=== PATIENT | male | born 1955 | race Caucasian/White ===

== ENCOUNTER 2021-08-19 11:13 | Observation (INO) ==
[2021-08-19 11:56] LABS: POC Blood Urea Nitrogen 20 mg/dL (6-20); POC CO2 29 mmol/L (22-30); POC Calcium, Ionized 1.17 mmEq/L (1.16-1.32); POC Chloride 101 mEq/L (96-108); POC Creatinine 0.8 mg/dL (0.6-1.2); POC Glucose, Random 87 mg/dL (70-105); POC Hematocrit 47 % (41-55); POC Potassium 3.8 mEql/L (3.3-5.1); POC Sodium 140 mEq/L (133-145)
--- NOTE | 2021-08-19 13:20 | Emergency Department Note ---
Overdose HPI General Chief Complaint: Accidental Ingestion Stated Complaint: Overdose Time Seen by Provider: 08/19/21 11:16 Source: EMS Mode of arrival: wheelchair Limitations: no limitations History of Present Illness HPI Narrative: This a 66-year-old male with Parkinson's disease who had accidental ingestion of his 's medication this morning around 7:30 AM when the accidentally swapped out his pillbox for hers. His looked through her medication pillbox and determined that he had taken 6000 mg of Metformin, 8 mg of glimepiride, 18.75 mg of zolpidem, 50 mg of losartan, 100 mg of sertraline, and several days of montelukast. She notes that he is considerably more drowsy than his baseline. She notes that due to his Parkinson's he does have slowed responses at baseline but this is much more pronounced. He is not diabetic at baseline and she checked his blood glucose this morning and it was noted to be 137. It is 87 on his Chem-8 here. Related Data Home Medications Medication Instructions Recorded Confirmed acetaminophen 500 mg tablet 500 mg PO Q6HP PRN tab 11/11/19 08/19/21 cholecalciferol (vitamin D3) 25 5,000 unit PO QDAY tab 11/11/19 08/19/21 mcg (1,000 unit) tablet epinephrine 0.3 mg/0.3 mL 0.3 mg IM ONCE 11/11/19 08/19/21 injection, auto-injector docusate sodium 100 mg capsule 100 mg PO BID 10/05/20 08/19/21 nystatin 100,000 unit/gram topical 1 applic TOPICAL BID PRN g 10/05/20 08/19/21 cream carbidopa 25 mg-levodopa 100 mg 2 tab PO QID tab 01/06/21 08/19/21 tablet metoprolol succinate 100 mg 100 mg PO QPM tab 06/15/21 08/19/21 tablet,extended release 24 hr metoprolol succinate 200 mg 200 mg PO QAM tab 06/15/21 08/19/21 tablet,extended release 24 hr pregabalin 75 mg capsule 150 mg PO QHS cap 06/15/21 08/19/21 torsemide 100 mg tablet 50 mg PO QHS 08/19/21 08/19/21 torsemide 100 mg tablet 100 mg PO QAM 08/19/21 08/19/21 Previous Rx's Medication Instructions Recorded Lift Reclining Chair #1 ea 02/19/20 allopurinol 300 mg tablet 300 mg PO QDAY #90 tab 11/23/20 carbidopa ER 50 mg-levodopa 200 mg 1 tab PO QID #360 tab 11/23/20 tablet,extended release lisinopril 40 mg tablet 40 mg PO QDAY #90 tab 12/20/20 CPAP Supplies #1 ea 03/03/21 potassium chloride 20 mEq 20 meq PO BID #180 tab 04/04/21 tablet,extended release pramipexole 0.5 mg tablet 0.5 mg PO BID PRN #180 tab 04/25/21 aripiprazole 10 mg tablet 10 mg PO QHS 30 Days #30 tab 05/12/21 trazodone 50 mg tablet 100 mg PO QHS #60 tab 05/12/21 clobetasol 0.05 % shampoo 1 applic TOPICAL QDAY #118 ml 06/15/21 zonisamide 50 mg capsule 100 mg PO QHS #60 cap 06/22/21 duloxetine 60 mg capsule,delayed 120 mg PO QDAY #60 cap 07/07/21 release (Cymbalta) lamotrigine 100 mg tablet See Rx Instructions .ROUTE 07/07/21 .COMPLEX #30 tab amiloride 5 mg tablet 5 mg PO BID #90 tab 07/19/21 albuterol sulfate 90 mcg/actuation 2 puff INHALATION .Q4-6H PRN #18 g 07/28/21 aerosol inhaler apixaban 5 mg tablet 5 mg PO BID #60 tab 07/29/21 spironolactone 100 mg tablet 100 mg PO QDAY #90 tab 08/15/21 amlodipine 5 mg tablet 5 mg PO QDAY #90 tab 08/16/21 Allergies Allergy/AdvReac Type Severity Reaction Status Date / Time nut - unspecified Allergy Intermediate Anaphylaxis Verified 08/19/21 18:14 Review of Systems ROS ROS Narrative: Narrative: All systems ED: reviewed and negative except as stated. [facility] Narrative Patient History Narrative: Narrative: Medical/Surgical/Family History All Active Problems (Updated 08/19/21 @ 18:50 by Acacia Butts PA-C) Accidental overdose by glyburide (Acute) Accidental metformin overdose (Acute) Accidental overdose of sertaline (Acute) Accidental zolpidem overdose (Acute) Overdose (Acute) Chest pain (Acute) Congestive heart failure (Acute) Anxiety (Chronic) Asthma (Chronic) Bleeding tendency (Chronic) Muscle pain (Chronic) Daytime sleepiness (Chronic) Hx of cholecystectomy (Chronic 05/12/17) Gout (Chronic) Afib (Chronic) CHF (congestive heart failure) (Chronic) Hypertension (Chronic) Insomnia (Chronic) Parkinsons (Chronic ~2012) Sleep apnea (Chronic ~2011) Hyperglycemia (Chronic) Hyperlipidemia with target LDL less than 130 (Chronic) Other and unspecified alcohol dependence, in remission (Chronic) Obstructive sleep apnea (Chronic) Periodic limb movement disorder (Chronic) Encounter for long-term (current) use of other medications (Chronic) Disturbance of skin sensation (Chronic) Osteoarthritis of both hips (Chronic) Osteoarthritis of left knee (Chronic) Vitamin D deficiency (Chronic) Morbid obesity with body mass index of 45.0-49.9 in adult (Chronic) Restless leg syndrome (Chronic) History of fall (Chronic) Risk for falls (Chronic) Camptocormia (Chronic) Abnormality of gait due to impairment of balance (Chronic) Visual hallucinations (Chronic) Suicidal ideation (Chronic) 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) Tremor (Chronic) Delusion (Chronic) Fall (Acute) Abrasion (Acute) Chronic anticoagulation (Acute) Left shoulder pain (Acute) 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) Chest pain (Acute) Lower back pain (Acute) Fracture of transverse process of spine without spinal cord lesion (Acute) Head injury (Acute) Fall (Acute) Hypertension (Acute) Peripheral edema (Acute) Resistant hypertension (Chronic) Localized edema due to fluid overload (Chronic) CHI (closed head injury) (Acute) Fall (Acute) Parkinson's disease (Acute) Headache (Acute) Medication management (Acute) Depression (Acute) Hypokalemia (Acute) Chest pain (Acute) Closed head injury (Acute) Contusion of front wall of thorax (Acute) Closed head injury (Acute) Medical History Abnormality of gait due to impairment of balance Afib Anxiety Asthma Since childhood Bleeding tendency Camptocormia CHF (congestive heart failure) Daytime sleepiness Delusion Disturbance of skin sensation Encounter for long-term (current) use of other medications Gout History of fall Hyperglycemia Hyperlipidemia with target LDL less than 130 Hypertension Hypokalemia Insomnia Morbid obesity with body mass index of 45.0-49.9 in adult Muscle pain Obsessive-compulsive and related disorder due to another medical condition Obstructive sleep apnea Osteoarthritis of both hips Osteoarthritis of left knee Other and unspecified alcohol dependence, in remission Parkinsons (~2012) Periodic limb movement disorder Restless leg syndrome Risk for falls Sleep apnea (~2011) Suicidal ideation Tremor Visual hallucinations Vitamin D deficiency Surgical History History of appendectomy (~1967) History of colonoscopy (~2004) [facility] Hx of cholecystectomy (05/12/17) Family History Mother Arthritis Allergies Heart failure HTN (hypertension) Asthma Coronary artery disease Rheumatoid arthritis Osteoarthritis Stroke Substance abuse Depression Father HTN (hypertension) Substance abuse Alcohol abuse Sister Breast cancer Asthma Diabetes Allergies Cancer Daughter Cancer Social History Smoking Status: Never smoker Alcohol Intake Frequency: holiday/special occasion only Substance Use: does not use Exam Narrative Narrative: General: AOx3, NAD, somnolent but easy to arouse. Answering questions appropriately. HEENT: PERRL, EOMI, normocephalic. Moist mucous membranes. Normal facies and normal dentition. Chest: Symmetric, no pain to palpation Respiratory: Lungs clear to auscultation bilaterally. No respiratory distress. Unlabored breathing. Heart: Regular rate and rhythm, no murmurs/clicks/rubs. Abdomen: Non-tender, Non distended, normal bowel tones. No organomegaly. Extremities: Warm and well perfused. No edema. DP 2+ bilaterally. No venous stasis. Neuro: No focal deficits. Cranial nerves II-XII grossly normal. Baseline Parkinson's tremor most notable in the right upper extremity Skin: Warm dry, no rashes or lesions, no cyanosis. Psych: Normal mood and affect Heme/Lymph: No abnormal bruising General Limitations: no limitations Course Reevaluation(s) Reevaluation #1: Poison control has been contacted and they recommend checking blood sugars every hour given that glimepiride can drop his blood sugars precipitously. They expect a peak time at 6 to 8 hours. In addition, they recommend checking a VBG and lactic acid now and every hour with a full peak effect at approximately 4 to 6 hours of the Metformin. zolpidem will make him sleepy and drowsy, but is unlikely to have other side effects that require close monitoring. They also recommend EKG in the setting of higher dose sertraline. Patient will need admission for further monitoring. We will give maintenance D5 1/2 normal saline. Awaiting full laboratory work-up prior to discussing with Dr Dionna Urrutia. Reevaluation #2: Lactic acid is 3.3, VBG with pH of 7.39, bicarb of 33.8, PCO2 of 57.8 Reevaluation #3: Repeat [id number] blood glucose is 97. Vital Signs Vital signs: Vital Signs Temperature 98 F 08/19/21 11:14 Pulse Rate 72 08/19/21 11:14 Respiratory Rate 12 08/19/21 11:14 Blood Pressure 159/99 08/19/21 11:14 Pulse Oximetry (%) 94 08/19/21 11:14 Temperature 98.1 F 08/19/21 16:48 Pulse Rate 91 H 08/19/21 16:01 Respiratory Rate 19 08/19/21 16:48 Blood Pressure 165/99 08/19/21 16:48 Pulse Oximetry (%) 97 08/19/21 16:48 MDM MDM Narrative Medical decision making narrative: Accidental overdose Poison control is recommending monitoring of his lactic acid due to Metformin overdose and trend every hour. This should peak around 4 to 6 hours. Supportive care with fluids. Poison control also recommends hourly glucose checks given his ingestion of glimepiride. I have started D5 one half normal saline. The patient has been signed out to Dr. Urrutia, hospitalist for admission. Lab Data Result diagrams: 08/19/21 13:26 Labs: Lab Results 08/19/21 08/19/21 08/19/21 Range/Units 11:52 13:26 13:26 WBC (4.5-11.0) K/mcL RBC (4.63-6.08) M/mcL Hgb (13.7-17.5) g/dL Hct (40.1-51.0) % POC Hct 47 (41-55) % MCV (80.0-100.0) fL MCH (26.0-34.0) pg MCHC (31.0-36.0) g/dL RDW (11.5-14.5) % Plt Count (140-440) K/mcL MPV (7.4-10.4) fL Neut % (Auto) (38.0-78.0) % Lymph % (Auto) (15.5-49.0) % Hawkins % (Auto) (1.0-12.0) % Eos % (Auto) (0.0-7.0) % Baso % (Auto) (0.0-2.0) % Lymph # (Auto) (1.50-4.80) K/mcL Hawkins # (Auto) (0.10-0.90) K/mcL Eos # (Auto) (0.00-0.70) K/mcL Baso # (Auto) (0.00-0.30) K/mcL Absolute Neutrophils (1.80-8.00) K/mcL ABG Methemoglobin 0.3 L (0.4-1.5) % VBG pH 7.39 (7.32-7.42) U VBG pCO2 57.8 H (41.0-51.0) mmHg VBG pO2 48.4 H (25.0-40.0) mmHg VBG HCO3 33.8 H (24.0-28.0) mmol/L VBG Total CO2 35.6 H (25.0-29.0) mmol/L VBG O2 Saturation 78.2 H (40.0-70.0) % VBG Base Excess 7 H (-2-3) VBG Lactic Acid TNP Carboxyhemoglobin 5.1 H (0.0-1.5) % THgb Total Hemoglobin 13.9 (13.5-16.5) gm/Dl POC Sodium 140 (133-145) mEq/L POC Potassium 3.8 (3.3-5.1) mEql/L POC Chloride 101 (96-108) mEq/L POC Total CO2 29 (22-30) mmol/L POC BUN 20 (6-20) mg/dL POC Creatinine 0.8 (0.6-1.2) mg/dL POC Glucose 87 (70-105) mg/dL POC WB Ioniz Calcium 1.17 (1.16-1.32) mmEq/L 08/19/21 Range/Units 13:26 WBC 8.6 (4.5-11.0) K/mcL RBC 4.58 L (4.63-6.08) M/mcL Hgb 14.5 (13.7-17.5) g/dL Hct 44.6 (40.1-51.0) % POC Hct (41-55) % MCV 97.4 (80.0-100.0) fL MCH 31.7 (26.0-34.0) pg MCHC 32.5 (31.0-36.0) g/dL RDW 13.5 (11.5-14.5) % Plt Count 251 (140-440) K/mcL MPV 10.1 (7.4-10.4) fL Neut % (Auto) 61.9 (38.0-78.0) % Lymph % (Auto) 23.4 (15.5-49.0) % Hawkins % (Auto) 9.2 (1.0-12.0) % Eos % (Auto) 4.3 (0.0-7.0) % Baso % (Auto) 1.2 (0.0-2.0) % Lymph # (Auto) 2.00 (1.50-4.80) K/mcL Hawkins # (Auto) 0.79 (0.10-0.90) K/mcL Eos # (Auto) 0.37 (0.00-0.70) K/mcL Baso # (Auto) 0.10 (0.00-0.30) K/mcL Absolute Neutrophils 5.30 (1.80-8.00) K/mcL ABG Methemoglobin (0.4-1.5) % VBG pH (7.32-7.42) U VBG pCO2 (41.0-51.0) mmHg VBG pO2 (25.0-40.0) mmHg VBG HCO3 (24.0-28.0) mmol/L VBG Total CO2 (25.0-29.0) mmol/L VBG O2 Saturation (40.0-70.0) % VBG Base Excess (-2-3) VBG Lactic Acid Carboxyhemoglobin (0.0-1.5) % THgb Total Hemoglobin (13.5-16.5) gm/Dl POC Sodium (133-145) mEq/L POC Potassium (3.3-5.1) mEql/L POC Chloride (96-108) mEq/L POC Total CO2 (22-30) mmol/L POC BUN (6-20) mg/dL POC Creatinine (0.6-1.2) mg/dL POC Glucose (70-105) mg/dL POC WB Ioniz Calcium (1.16-1.32) mmEq/L Discharge Plan Patient/Caregiver Discharge Instructions Pt seen by [employer]/PA only: Yes Clinical Impression: Accidental overdose by glyburide, Accidental metformin overdose, Accidental overdose of sertaline, Accidental zolpidem overdose Patient Disposition: Xfer As Inpt ([facility]) Condition: Good Discharge Date/Time: 08/19/21 16:35
[2021-08-19 13:54] LABS: ABG Methemoglobin 0.3 % (0.4-1.5); Total Hemoglobin 13.9 gm/Dl (13.5-16.5); VBG Base Excess 7 (-2-3); VBG HCO3 33.8 mmol/L (24.0-28.0); VBG Oxygen Saturation 78.2 % (40.0-70.0); VBG PCO2 57.8 mmHg (41.0-51.0); VBG PH 7.39 U (7.32-7.42); VBG PO2 48.4 mmHg (25.0-40.0); VBG Total CO2 35.6 mmol/L (25.0-29.0)
[2021-08-19] MEDS: DEXTROSE 5%-1/2NS 1,000 ML IV SCH ×2 (14:16→16:40)
[2021-08-19 14:57] LABS: Basophils % (Auto) 1.2 % (0.0-2.0); Eosinophils # (Auto) 0.37 K/mcL (0.00-0.70); Eosinophils % (Auto) 4.3 % (0.0-7.0); Hematocrit 44.6 % (40.1-51.0); Hemoglobin 14.5 g/dL (13.7-17.5); Lymphocytes % (Auto) 23.4 % (15.5-49.0); Mean Cell Volume 97.4 fL (80.0-100.0); Mean Corpuscular HGB Conc 32.5 g/dL (31.0-36.0); Mean Platelet Volume 10.1 fL (7.4-10.4); Monocytes # (Auto) 0.79 K/mcL (0.10-0.90); Monocytes % (Auto) 9.2 % (1.0-12.0); Neutrophils % (Auto) 61.9 % (38.0-78.0); Platelet Count 251 K/mcL (140-440); RBC 4.58 M/mcL (4.63-6.08); Red Cell Distribution Width 13.5 % (11.5-14.5); WBC 8.6 K/mcL (4.5-11.0)
--- NOTE | 2021-08-19 15:49 | Internal Med History&Physical ---
HPI History of Present Illness Patient information: Note initiated : 08/19/21 at 3:47 pm Service Date, if different from initiated Date: [] Patient: Beny Raphael 66 y/o M admitted on for Overdose. Chief Complaint: [OD] Chief complaint: OD History of present illness: Mr. Raphael is a 66 year old M with Parkinson disease, atrial fibrillation's on anticoagulant, congestive heart failure, hypertensions, stented with accidental overdose. At about 7:30 AM, patient's accidentally took his 's medications including 6000 mg of Metformin, 8 mg of Glimepiride, 18.75 mg of zolpidem, 50 mg of losartan, 100 mg of sertraline, and several days of montelukast. According to the at the bedside, patient is appearing more lethargic than his baseline. ER provider spoke with poison control who recommended overnight admissions with every hour blood glucose monitoring as well as every hour while of VBG and lactic acid monitoring. Patient currently denies any pain or discomfort. He is able to carry in normal conversations with me. He does not look overly lethargic. Has no focal neurological deficits. He is following verbal command perfectly. Constitutional Constitutional: Absent chills, excessive sweating, fatigue, fever(s) or weakness EENT Eyes: Absent blurry vision, change in vision, loss of vision or other visual disturbances Ears: Absent decreased hearing or tinnitus Nose, mouth and throat: Absent abnormal hearing, dry mouth, headache(s), nasal congestion or sore throat Cardiovascular Cardiovascular: Absent chest pain, chest pain at rest, edema, irregular heart rhythm or palpatations Respiratory Respiratory: Absent cough, dyspnea or wheezing Gastrointestinal Gastrointestinal: Absent abdominal pain, constipation, diarrhea, nausea or vomiting Musculoskeletal Musculoskeletal: Absent back pain, deformity, limited range of motion, muscle cramps, muscle weakness or numbness Integumentary Integumentary: Absent lesions, rash or wounds Neurological Neurological: Absent focal weakness, headache(s) or numbness Psychiatric Psychiatric: Absent anxiety, depression or hallucinations PFSH PFSH All Active Problems (Updated 08/19/21 @ 15:55 by Nicolas Urrutia MD) Overdose (Acute) Chest pain (Acute) Congestive heart failure (Acute) Anxiety (Chronic) Asthma (Chronic) Bleeding tendency (Chronic) Muscle pain (Chronic) Daytime sleepiness (Chronic) Hx of cholecystectomy (Chronic 05/12/17) Gout (Chronic) Afib (Chronic) CHF (congestive heart failure) (Chronic) Hypertension (Chronic) Insomnia (Chronic) Parkinsons (Chronic ~2012) Sleep apnea (Chronic ~2011) Hyperglycemia (Chronic) Hyperlipidemia with target LDL less than 130 (Chronic) Other and unspecified alcohol dependence, in remission (Chronic) Obstructive sleep apnea (Chronic) Periodic limb movement disorder (Chronic) Encounter for long-term (current) use of other medications (Chronic) Disturbance of skin sensation (Chronic) Osteoarthritis of both hips (Chronic) Osteoarthritis of left knee (Chronic) Vitamin D deficiency (Chronic) Morbid obesity with body mass index of 45.0-49.9 in adult (Chronic) Restless leg syndrome (Chronic) History of fall (Chronic) Risk for falls (Chronic) Camptocormia (Chronic) Abnormality of gait due to impairment of balance (Chronic) Visual hallucinations (Chronic) Suicidal ideation (Chronic) 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) Tremor (Chronic) Delusion (Chronic) Fall (Acute) Abrasion (Acute) Chronic anticoagulation (Acute) Left shoulder pain (Acute) 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) Chest pain (Acute) Lower back pain (Acute) Fracture of transverse process of spine without spinal cord lesion (Acute) Head injury (Acute) Fall (Acute) Hypertension (Acute) Peripheral edema (Acute) Resistant hypertension (Chronic) Localized edema due to fluid overload (Chronic) CHI (closed head injury) (Acute) Fall (Acute) Parkinson's disease (Acute) Headache (Acute) Medication management (Acute) Depression (Acute) Hypokalemia (Acute) Chest pain (Acute) Closed head injury (Acute) Contusion of front wall of thorax (Acute) Closed head injury (Acute) Medical History Abnormality of gait due to impairment of balance Afib Anxiety Asthma Since childhood Bleeding tendency Camptocormia CHF (congestive heart failure) Daytime sleepiness Delusion Disturbance of skin sensation Encounter for long-term (current) use of other medications Gout History of fall Hyperglycemia Hyperlipidemia with target LDL less than 130 Hypertension Hypokalemia Insomnia Morbid obesity with body mass index of 45.0-49.9 in adult Muscle pain Obsessive-compulsive and related disorder due to another medical condition Obstructive sleep apnea Osteoarthritis of both hips Osteoarthritis of left knee Other and unspecified alcohol dependence, in remission Parkinsons (~2012) Periodic limb movement disorder Restless leg syndrome Risk for falls Sleep apnea (~2011) Suicidal ideation Tremor Visual hallucinations Vitamin D deficiency Surgical History History of appendectomy (~1967) History of colonoscopy (~2004) [facility] Hx of cholecystectomy (05/12/17) Family History Mother Arthritis Allergies Heart failure HTN (hypertension) Asthma Coronary artery disease Rheumatoid arthritis Osteoarthritis Stroke Substance abuse Depression Father HTN (hypertension) Substance abuse Alcohol abuse Sister Breast cancer Asthma Diabetes Allergies Cancer Daughter Cancer Social History household members: spouse marital status: occupational status: retired smoking status: Never smoker alcohol intake frequency: holiday/special occasion only substance use type: does not use MEDS/ALLERGIES Home Medications and Allergies Home Medications Medication Instructions Recorded Confirmed Type acetaminophen 500 mg tablet 500 mg PO ONCE PRN tab 11/11/19 07/07/21 History cholecalciferol (vitamin D3) 25 5,000 unit PO QDAY tab 11/11/19 07/07/21 History mcg (1,000 unit) tablet epinephrine 0.3 mg/0.3 mL 0.3 mg IM ONCE 11/11/19 07/07/21 History injection, auto-injector Lift Reclining Chair #1 ea 02/19/20 07/07/21 Rx docusate sodium 100 mg capsule 100 mg PO QDAY PRN 10/05/20 07/07/21 History nystatin 100,000 unit/gram topical 1 applic TOPICAL BID PRN g 10/05/20 07/07/21 History cream allopurinol 300 mg tablet 300 mg PO QDAY #90 tab 11/23/20 07/07/21 Rx carbidopa ER 50 mg-levodopa 200 mg 1 tab PO QID #360 tab 11/23/20 07/07/21 Rx tablet,extended release lisinopril 40 mg tablet 40 mg PO QDAY #90 tab 12/20/20 07/07/21 Rx carbidopa 25 mg-levodopa 100 mg 2 tab PO QID tab 01/06/21 07/07/21 History tablet CPAP Supplies #1 ea 03/03/21 07/07/21 Rx potassium chloride 20 mEq 20 meq PO BID #180 tab 04/04/21 07/07/21 Rx tablet,extended release pramipexole 0.5 mg tablet 0.5 mg PO BID PRN #180 tab 04/25/21 07/07/21 Rx torsemide 100 mg tablet 150 mg PO QDAY #145 tab 05/02/21 07/07/21 Rx aripiprazole 10 mg tablet 10 mg PO QHS 30 Days #30 tab 05/12/21 07/07/21 Rx trazodone 50 mg tablet 100 mg PO QHS #60 tab 05/12/21 07/07/21 Rx clobetasol 0.05 % shampoo 1 applic TOPICAL QDAY #118 ml 06/15/21 07/07/21 Rx metoprolol succinate 100 mg 100 mg PO QPM tab 06/15/21 07/07/21 History tablet,extended release 24 hr metoprolol succinate 200 mg 200 mg PO QAM tab 06/15/21 07/07/21 History tablet,extended release 24 hr pregabalin 75 mg capsule 150 mg PO QHS cap 06/15/21 07/07/21 History zonisamide 50 mg capsule 100 mg PO QHS #60 cap 06/22/21 07/07/21 Rx duloxetine 60 mg capsule,delayed 120 mg PO QDAY #60 cap 07/07/21 07/07/21 Rx release (Cymbalta) lamotrigine 100 mg tablet See Rx Instructions .ROUTE 07/07/21 07/07/21 Rx .COMPLEX #30 tab amiloride 5 mg tablet 5 mg PO BID #90 tab 07/19/21 Rx albuterol sulfate 90 mcg/actuation 2 puff INHALATION .Q4-6H PRN #18 g 07/28/21 Rx aerosol inhaler apixaban 5 mg tablet 5 mg PO BID #60 tab 07/29/21 Rx spironolactone 100 mg tablet 100 mg PO QDAY #90 tab 08/15/21 Rx amlodipine 5 mg tablet 5 mg PO QDAY #90 tab 08/16/21 Rx Allergies Allergy/AdvReac Type Severity Reaction Status Date / Time nut - unspecified Allergy Intermediate Anaphylaxis Verified 07/07/21 13:09 EXAM Constitutional Vitals: Temp Pulse Resp BP Pulse Ox 36.6 C 84 22 149/93 94 08/19/21 11:14 08/19/21 13:31 08/19/21 12:01 08/19/21 13:31 08/19/21 13:31 General appearance: cooperative and no acute distress Head Head exam: Present atraumatic and normocephalic Eye Eye exam: Present EOMI and PERRL ENT ENT exam: Present mucous membranes moist, normal exam and normal external ear exam Neck Neck exam: Present normal inspection; Absent lymphadenopathy, tenderness or t hyromegaly Respiratory Respiratory exam: Absent accessory muscle use, respiratory distress or wheezes Cardiovascular Cardiovascular exam: Present irregular rhythm; Absent JVD GI/Abdominal GI/Abdominal exam: Present normal bowel sounds and soft; Absent organomegaly or tenderness Rectal Rectal exam: Present deferred Extremities Exam Extremities exam: Present full ROM, normal capillary refill and normal inspection; Absent tenderness Neurological Exam Neurological exam: Present alert, CN II-XII intact and oriented X3; Absent motor sensory deficit Psychiatric Psychiatric exam: Present normal affect and normal mood; Absent anxious or depressed Skin Skin exam: Present dry and intact DATA Data Completed and Pending Labs: Labs from last 24 hours 08/19/21 08/19/21 08/19/21 13:26 13:26 13:26 WBC 8.6 RBC 4.58 L Hgb 14.5 Hct 44.6 POC Hct MCV 97.4 MCH 31.7 MCHC 32.5 RDW 13.5 Plt Count 251 MPV 10.1 Neut % (Auto) 61.9 Lymph % (Auto) 23.4 Grayson % (Auto) 9.2 Eos % (Auto) 4.3 Baso % (Auto) 1.2 Lymph # (Auto) 2.00 Grayson # (Auto) 0.79 Eos # (Auto) 0.37 Baso # (Auto) 0.10 Absolute Neutrophils 5.30 ABG Methemoglobin 0.3 L VBG pH 7.39 VBG pCO2 57.8 H VBG pO2 48.4 H VBG HCO3 33.8 H VBG Total CO2 35.6 H VBG O2 Saturation 78.2 H VBG Base Excess 7 H VBG Lactic Acid TNP Carboxyhemoglobin 5.1 H Total Hemoglobin 13.9 POC Sodium POC Potassium POC Chloride POC Total CO2 POC BUN POC Creatinine POC Glucose POC WB Ioniz Calcium 08/19/21 11:52 WBC RBC Hgb Hct POC Hct 47 MCV MCH MCHC RDW Plt Count MPV Neut % (Auto) Lymph % (Auto) Grayson % (Auto) Eos % (Auto) Baso % (Auto) Lymph # (Auto) Grayson # (Auto) Eos # (Auto) Baso # (Auto) Absolute Neutrophils ABG Methemoglobin VBG pH VBG pCO2 VBG pO2 VBG HCO3 VBG Total CO2 VBG O2 Saturation VBG Base Excess VBG Lactic Acid Carboxyhemoglobin Total Hemoglobin POC Sodium 140 POC Potassium 3.8 POC Chloride 101 POC Total CO2 29 POC BUN 20 POC Creatinine 0.8 POC Glucose 87 POC WB Ioniz Calcium 1.17 A/P Assessment and plan (1) Overdose: Status: Acute (2) CHF (congestive heart failure): Status: Chronic Qualifiers: Heart failure type: unspecified Heart failure chronicity: acute on chronic Qualified Code(s): I50.9 - Heart failure, unspecified (3) Afib: Status: Chronic Qualifiers: Atrial fibrillation type: unspecified chronic Qualified Code(s): I48.20 - Chronic atrial fibrillation, unspecified; I48.2 - Chronic atrial fibrillation (4) 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: Status: Chronic (5) Gout: Status: Chronic Qualifiers: Gout site: unspecified site Gout etiology: unspecified cause Chronicity: chronic Presence of tophus: without tophus Qualified Code(s): M1A.9XX0 - Chronic gout, unspecified, without tophus (tophi) (6) Sleep apnea: Status: Chronic Qualifiers: Sleep apnea type: obstructive Qualified Code(s): G47.33 - Obstructive sleep apnea (adult) (pediatric) Narrative A/P Narrative: Assessment: #Overdose with Metformin, Glimepiride, Zolpidem, Losartan, Sertraline, and Montelukast #Atrial fibrillation #Congestive heart failure #Parkinson's Disease #Gout #MALIA Plans: Observation PCU telemetry ECG 06/26 NS@75cc/hr Accu Chek q1hr VBG q1hr Lactic acid q1hr Neuro Chek Eliquis Metoprolol ER CPAP at night while sleeping Sinemet Time Spent With Patient Time: Total time spent is greater than 50% in coordination of care (as documented) at patient's floor/unit and/or counseling patient: Total time spent with greater than 50% in coordination of care (as documented) at patient's floor/unit and/or counseling patient:: Greater than 35 minutes
[2021-08-19] MEDS ORDERED: SENNOSIDES 1 TABLET PO PRN (16:56)
[2021-08-19] MEDS ORDERED: LACTULOSE 20 GM/30 ML ORAL.SOL PO PRN (16:56)
[2021-08-19] MEDS ORDERED: ALBUTEROL SULFATE 200 PUFF INHALER INH PRN (16:56)
[2021-08-19] MEDS ORDERED: DOCUSATE SODIUM 100 MG CAPSULE PO PRN (16:56)
[2021-08-19] MEDS ORDERED: ACETAMINOPHEN 325 MG TABLET PO PRN (16:56)
[2021-08-19] MEDS ORDERED: IPRATROPIUM/ALBUTEROL 3 ML AMPUL.NEB NEB PRN (16:56)
[2021-08-19] MEDS ORDERED: ONDANSETRON 4 MG/2 ML VIAL IV PRN (16:56)
[2021-08-19 17:57] LABS: ABG Methemoglobin 0.2 % (0.4-1.5); Total Hemoglobin 14.1 gm/Dl (13.5-16.5); VBG Base Excess 4 (-2-3); VBG HCO3 27.9 mmol/L (24.0-28.0); VBG Oxygen Saturation 88.3 % (40.0-70.0); VBG PH 7.45 U (7.32-7.42); VBG PO2 76.8 mmHg (25.0-40.0); VBG Total CO2 29.1 mmol/L (25.0-29.0)
[2021-08-19] MEDS: CARBIDOPA/LEVODOPA 25/100 TABLET PO SCH ×2 (18:03→21:23)
[2021-08-19] MEDS ORDERED: hydrALAZINE 20 MG/ML VIAL IV PRN (18:09)
[2021-08-19] MEDS ORDERED: PRAMIPEXOLE 0.25 MG TABLET PO PRN (20:37)
[2021-08-19] MEDS ORDERED: ARIPIPRAZOLE 5 MG TABLET PO SCH (21:00)
[2021-08-19] MEDS ORDERED: ZONISAMIDE 50 MG CAPSULE PO SCH (21:00)
[2021-08-19] MEDS ORDERED: TORSEMIDE 10 MG TABLET PO SCH (21:00)
[2021-08-19] MEDS ORDERED: traZODone HCL 50 MG TABLET PO SCH (21:00)
[2021-08-19] MEDS ORDERED: METOPROLOL SUCCINATE 50 MG TAB.XL.24H PO SCH (21:00)
[2021-08-19] MEDS: DOCUSATE SODIUM 100 MG CAPSULE PO SCH (21:05)
[2021-08-19] MEDS: 0.9 % SODIUM CHLORIDE 10 ML SYRINGE IV SCH (21:08)
[2021-08-19] MEDS: lamoTRIgine 100 MG TABLET PO SCH (21:21)
[2021-08-19] MEDS: aMILoride 5 MG TABLET PO SCH (21:22)
[2021-08-19] MEDS: POTASSIUM CHLORIDE 20 MEQ TABLET PO SCH (21:23)
[2021-08-19] MEDS: APIXABAN 5 MG TABLET PO SCH (21:23)
[2021-08-20] MEDS: DEXTROSE 5%-1/2NS 1,000 ML IV SCH (03:25)
[2021-08-20] MEDS: 0.9 % SODIUM CHLORIDE 10 ML SYRINGE IV SCH (05:58)
[2021-08-20 08:56] LABS: Basophils # (Auto) 0.07 K/mcL (0.00-0.30); Basophils % (Auto) 0.7 % (0.0-2.0); Eosinophils # (Auto) 0.46 K/mcL (0.00-0.70); Eosinophils % (Auto) 4.4 % (0.0-7.0); Hematocrit 42.1 % (40.1-51.0); Hemoglobin 14.1 g/dL (13.7-17.5); Lymphocytes # (Auto) 2.25 K/mcL (1.50-4.80); Lymphocytes % (Auto) 21.7 % (15.5-49.0); Mean Cell Volume 96.3 fL (80.0-100.0); Mean Corpuscular HGB Conc 33.5 g/dL (31.0-36.0); Mean Platelet Volume 9.9 fL (7.4-10.4); Monocytes # (Auto) 0.73 K/mcL (0.10-0.90); Monocytes % (Auto) 7.1 % (1.0-12.0); Neutrophils % (Auto) 66.1 % (38.0-78.0); Platelet Count 226 K/mcL (140-440); RBC 4.37 M/mcL (4.63-6.08); Red Cell Distribution Width 13.3 % (11.5-14.5); WBC 10.4 K/mcL (4.5-11.0)
[2021-08-20] MEDS ORDERED: VITAMIN D3 125 MCG TABLET PO SCH (09:00)
[2021-08-20] MEDS ORDERED: ALLOPURINOL 300 MG TABLET PO SCH (09:00)
[2021-08-20] MEDS ORDERED: amLODIPine 5 MG TABLET PO SCH (09:00)
[2021-08-20] MEDS ORDERED: TORSEMIDE 100 MG PO SCH (09:00)
[2021-08-20] MEDS ORDERED: TORSEMIDE 20 MG TABLET PO SCH (09:00)
[2021-08-20] MEDS ORDERED: LISINOPRIL 20 MG TABLET PO SCH (09:00)
[2021-08-20] MEDS ORDERED: SPIRONOLACTONE 25 MG TABLET PO SCH (09:00)
[2021-08-20] MEDS ORDERED: METOPROLOL SUCCINATE 200 MG PO SCH (09:00)
[2021-08-20] MEDS ORDERED: DULoxetine 30 MG CAPSULE PO SCH (09:00)
[2021-08-20] MEDS: APIXABAN 5 MG TABLET PO SCH (09:22)
[2021-08-20] MEDS: DOCUSATE SODIUM 100 MG CAPSULE PO SCH (09:22)
[2021-08-20] MEDS: POTASSIUM CHLORIDE 20 MEQ TABLET PO SCH (09:23)
[2021-08-20 09:28] LABS: ALT/SGPT 11 U/L (<40); AST/SGOT 10 U/L (<40); Albumin 3.7 gm/dL (3.2-5.2); Albumin/Globulin Ratio 1.2 (1.0-2.3); Alkaline Phosphatase 56 U/L (39-117); Bilirubin,Total 0.5 mg/dL (0.1-1.0); Blood Urea Nitrogen 15 mg/dL (8-23); Calcium 8.4 mg/dL (8.6-10.4); Carbon Dioxide 28 mmol/L (22-30); Chloride 98 mmol/L (96-108); Globulin 3.1 gm/dL (2.2-3.7); Glomerular Filtration Rate 90; Glucose 114 mg/dL (70-105)
--- NOTE | 2021-08-20 09:31 | Discharge Summary ---
Discharge Provider Provider Patient information: Note initiated : 08/20/21 at 9:28 am Service Date, if different from initiated Date: [] Patient: Beny Raphael 66 y/o M admitted on 08/19/21 for Overdose. Chief Complaint: [] Date of admission: 08/19/21 16:35 Discharge date: 08/20/21 Primary care physician: Delta Cee PA-C Attending physician on admission: Nicolas Urrutia Consults: 08/19/21 Consult to Physician [CONS] Stat Comment: Consulting Provider: Nicolas Urrutia Reason For Exam: Physician to Consult Attending physician on discharge: Nicolas Melendez [place] Discharge Meds Discharge Medications Home Medications acetaminophen 500 mg tablet 500 mg PO Q6HP PRN tab 11/11/19 [History Confirmed 08/19/21 Last Taken 08/18/21 20:30] cholecalciferol (vitamin D3) 25 mcg (1,000 unit) tablet 5,000 unit PO QDAY tab 11/11/19 [History Confirmed 08/19/21 Last Taken 08/18/21 09:00] epinephrine 0.3 mg/0.3 mL injection, auto-injector 0.3 mg IM ONCE 11/11/19 [History Confirmed 08/19/21 Last Taken Unknown] Lift Reclining Chair #1 ea 02/19/20 [Rx Confirmed 08/19/21 Last Taken Unknown] docusate sodium 100 mg capsule 100 mg PO BID 10/05/20 [History Confirmed 08/19/21 Last Taken 08/18/21 21:00] nystatin 100,000 unit/gram topical cream 1 applic TOPICAL BID PRN g 10/05/20 [History Confirmed 08/19/21 Last Taken Unknown] allopurinol 300 mg tablet 300 mg PO QDAY #90 tab 11/23/20 [Rx Confirmed 08/19/21 Last Taken 08/18/21 09:00] carbidopa ER 50 mg-levodopa 200 mg tablet,extended release 1 tab PO QID #360 tab 11/23/20 [Rx Confirmed 08/19/21 Last Taken 08/18/21 19:00] lisinopril 40 mg tablet 40 mg PO QDAY #90 tab 12/20/20 [Rx Confirmed 08/19/21 Last Taken 08/18/21 09:00] carbidopa 25 mg-levodopa 100 mg tablet 2 tab PO QID tab 01/06/21 [History Confirmed 08/19/21 Last Taken 08/18/21 19:00] CPAP Supplies #1 ea 03/03/21 [Rx Confirmed 08/19/21 Last Taken Unknown] potassium chloride 20 mEq tablet,extended release 20 meq PO BID #180 tab 04/04/21 [Rx Confirmed 08/19/21 Last Taken 08/18/21 11:00] pramipexole 0.5 mg tablet 0.5 mg PO BID PRN #180 tab 04/25/21 [Rx Confirmed 08/19/21 Last Taken 08/18/21 15:00] aripiprazole 10 mg tablet 10 mg PO QHS 30 Days #30 tab 05/12/21 [Rx Confirmed 08/19/21 Last Taken 08/18/21 21:00] trazodone 50 mg tablet 100 mg PO QHS #60 tab 05/12/21 [Rx Confirmed 08/19/21 Last Taken 08/18/21 21:00] clobetasol 0.05 % shampoo 1 applic TOPICAL QDAY #118 ml 06/15/21 [Rx Confirmed 08/19/21 Last Taken 08/17/21] metoprolol succinate 100 mg tablet,extended release 24 hr 100 mg PO QPM tab 06/15/21 [History Confirmed 08/19/21 Last Taken 08/18/21 21:00] metoprolol succinate 200 mg tablet,extended release 24 hr 200 mg PO QAM tab 06/15/21 [History Confirmed 08/19/21 Last Taken 08/18/21 11:00] pregabalin 75 mg capsule 150 mg PO QHS cap 06/15/21 [History Confirmed 08/19/21 Last Taken Unknown] zonisamide 50 mg capsule 100 mg PO QHS #60 cap 06/22/21 [Rx Confirmed 08/19/21 Last Taken 08/18/21 21:00] duloxetine 60 mg capsule,delayed release (Cymbalta) 120 mg PO QDAY #60 cap 07/07/21 [Rx Confirmed 08/19/21 Last Taken 08/18/21 09:00] lamotrigine 100 mg tablet See Rx Instructions .ROUTE .COMPLEX #30 tab 07/07/21 [Rx Confirmed 08/19/21 Last Taken 08/18/21 09:00] amiloride 5 mg tablet 5 mg PO BID #90 tab 07/19/21 [Rx Confirmed 08/19/21 Last Taken 08/18/21 19:00] albuterol sulfate 90 mcg/actuation aerosol inhaler 2 puff INHALATION .Q4-6H PRN #18 g 07/28/21 [Rx Confirmed 08/19/21 Last Taken 08/12/21] apixaban 5 mg tablet 5 mg PO BID #60 tab 07/29/21 [Rx Confirmed 08/19/21 Last Taken 08/18/21 19:00] spironolactone 100 mg tablet 100 mg PO QDAY #90 tab 08/15/21 [Rx Confirmed 08/19/21 Last Taken 08/18/21 11:00] amlodipine 5 mg tablet 5 mg PO QDAY #90 tab 08/16/21 [Rx Confirmed 08/19/21 Last Taken 08/18/21 09:00] torsemide 100 mg tablet 50 mg PO QHS 08/19/21 [History Confirmed 08/19/21 Last Taken 08/18/21 21:00] torsemide 100 mg tablet 100 mg PO QAM 08/19/21 [History Confirmed 08/19/21 Last Taken 08/18/21 09:00] COURSE Hospital Course Hospital course: Mr. Raphael is a 66 year old M with Parkinson disease, atrial fibrillation's on anticoagulant, congestive heart failure, hypertensions, stented with accidental overdose. At about 7:30 AM, patient's accidentally took his 's medications including 6000 mg of Metformin, 8 mg of Glimepiride, 18.75 mg of zolpidem, 50 mg of losartan, 100 mg of sertraline, and several days of montelukast. According to the at the bedside, patient is appearing more lethargic than his baseline. ER provider spoke with poison control who recommended overnight admissions with every hour blood glucose monitoring as well as every hour while of VBG and lactic acid monitoring. Patient currently denies any pain or discomfort. He is able to carry in normal conversations with me. He does not look overly lethargic. Has no focal neurological deficits. He is following verbal command perfectly. 08/20: Blood glucose within normal limits. Repeat chemistry and VBG also unremarkable. Patient been clinically stable. Decision made to discharge him home with instruction to follow up with PCP in 2 weeks. All questions were answered prior to patient being physically discharged. Discharge diagnosis: overdose Time Spent with Patient Time attestation: Total time spent providing and/or coordinating discharge services: Time spent: Less than 30 minutes EXAM Constitutional Vitals: Temp Pulse Resp BP Pulse Ox 37.0 C 60 24 H 125/79 94 08/20/21 08:01 08/20/21 08:01 08/20/21 08:01 08/20/21 08:01 08/20/21 08:01 General appearance: cooperative and no acute distress Head Head exam: Present atraumatic and normocephalic Eye Eye exam: Present EOMI and PERRL ENT ENT exam: Present mucous membranes moist, normal exam and normal external ear exam Neck Neck exam: Present normal inspection; Absent lymphadenopathy, tenderness or thyromegaly Respiratory Respiratory exam: Absent accessory muscle use, respiratory distress or wheezes Cardiovascular Cardiovascular exam: Present normal rate and rhythm; Absent JVD GI/Abdominal GI/Abdominal exam: Present normal bowel sounds and soft; Absent organomegaly or tenderness Rectal Rectal exam: Present deferred Extremities Exam Extremities exam: Present full ROM, normal capillary refill and normal inspection; Absent tenderness Neurological Exam Neurological exam: Present alert, CN II-XII intact and oriented X3; Absent motor sensory deficit Additional comments: increased bilateral hands tremors Psychiatric Psychiatric exam: Present normal affect and normal mood; Absent anxious or depressed Skin Skin exam: Present dry and intact Discharge Data Data Completed and Pending Labs on day of discharge: Labs from last 24 hours 08/20/21 08/20/21 08/19/21 08:28 08:28 18:18 WBC 10.4 RBC 4.37 L Hgb 14.1 Hct 42.1 POC Hct MCV 96.3 MCH 32.3 MCHC 33.5 RDW 13.3 Plt Count 226 MPV 9.9 Neut % (Auto) 66.1 Lymph % (Auto) 21.7 [place] % (Auto) 7.1 Eos % (Auto) 4.4 Baso % (Auto) 0.7 Lymph # (Auto) 2.25 [place] # (Auto) 0.73 Eos # (Auto) 0.46 Baso # (Auto) 0.07 Absolute Neutrophils 6.84 ABG Methemoglobin VBG pH VBG pCO2 VBG pO2 VBG HCO3 VBG Total CO2 VBG O2 Saturation VBG Base Excess VBG Lactic Acid 2.3 H Carboxyhemoglobin Total Hemoglobin POC Sodium Sodium Pending POC Potassium Potassium Pending POC Chloride Chloride Pending Carbon Dioxide Pending POC Total CO2 Anion Gap Pending POC BUN BUN Pending Creatinine Pending POC Creatinine GFR Calculation Pending Glucose Pending POC Glucose Calcium Pending POC WB Ioniz Calcium Total Bilirubin Pending AST Pending ALT Pending Alkaline Phosphatase Pending Total Protein Pending Albumin Pending Globulin Pending Albumin/Globulin Ratio Pending 08/19/21 08/19/21 08/19/21 17:35 17:35 13:26 WBC 8.6 RBC 4.58 L Hgb 14.5 Hct 44.6 POC Hct MCV 97.4 MCH 31.7 MCHC 32.5 RDW 13.5 Plt Count 251 MPV 10.1 Neut % (Auto) 61.9 Lymph % (Auto) 23.4 [place] % (Auto) 9.2 Eos % (Auto) 4.3 Baso % (Auto) 1.2 Lymph # (Auto) 2.00 [place] # (Auto) 0.79 Eos # (Auto) 0.37 Baso # (Auto) 0.10 Absolute Neutrophils 5.30 ABG Methemoglobin 0.2 L VBG pH 7.45 H VBG pCO2 41.0 VBG pO2 76.8 H VBG HCO3 27.9 VBG Total CO2 29.1 H VBG O2 Saturation 88.3 H VBG Base Excess 4 H VBG Lactic Acid 2.2 H Carboxyhemoglobin 8.1 H Total Hemoglobin 14.1 POC Sodium Sodium POC Potassium Potassium POC Chloride Chloride Carbon Dioxide POC Total CO2 Anion Gap POC BUN BUN Creatinine POC Creatinine GFR Calculation Glucose POC Glucose Calcium POC WB Ioniz Calcium Total Bilirubin AST ALT Alkaline Phosphatase Total Protein Albumin Globulin Albumin/Globulin Ratio 08/19/21 08/19/21 08/19/21 13:26 13:26 11:52 WBC RBC Hgb Hct POC Hct 47 MCV MCH MCHC RDW Plt Count MPV Neut % (Auto) Lymph % (Auto) [place] % (Auto) Eos % (Auto) Baso % (Auto) Lymph # (Auto) [place] # (Auto) Eos # (Auto) Baso # (Auto) Absolute Neutrophils ABG Methemoglobin 0.3 L VBG pH 7.39 VBG pCO2 57.8 H VBG pO2 48.4 H VBG HCO3 33.8 H VBG Total CO2 35.6 H VBG O2 Saturation 78.2 H VBG Base Excess 7 H VBG Lactic Acid TNP Carboxyhemoglobin 5.1 H Total Hemoglobin 13.9 POC Sodium 140 Sodium POC Potassium 3.8 Potassium POC Chloride 101 Chloride Carbon Dioxide POC Total CO2 29 Anion Gap POC BUN 20 BUN Creatinine POC Creatinine 0.8 GFR Calculation Glucose POC Glucose 87 Calcium POC WB Ioniz Calcium 1.17 Total Bilirubin AST ALT Alkaline Phosphatase Total Protein Albumin Globulin Albumin/Globulin Ratio Discharge Plan Patient/Caregiver Discharge Instructions Activity: increase activity as tolerated Diet: Regular Diet Prescriptions: Continued duloxetine [Cymbalta] 60 mg capsule,delayed release(DR/EC) 120 mg PO QDAY Qty: 60 3RF lamotrigine 100 mg tablet See Rx Instructions .ROUTE .COMPLEX Qty: 30 3RF Dose Instruction: TAKE ONE TABLET BY MOUTH ONE TIME DAILY Rx Instructions: TAKE ONE TABLET BY MOUTH ONE TIME DAILY trazodone 50 mg tablet 100 mg PO QHS Qty: 60 3RF aripiprazole 10 mg tablet 10 mg PO QHS 30 Days Qty: 30 3RF (DME) Lift Reclining Chair Qty: 1 0RF Rx Instructions: As directed carbidopa-levodopa 50-200 mg tablet extended release 1 tab PO QID Qty: 360 3RF allopurinol 300 mg tablet 300 mg PO QDAY Qty: 90 3RF lisinopril 40 mg tablet 40 mg PO QDAY Qty: 90 3RF (DME) CPAP Supplies See Rx Instructions .Route .MEDSUPPLY Qty: 1 0RF Rx Instructions: As directed; pramipexole 0.5 mg tablet 0.5 mg PO BID PRN (Reason: restless leg(s)) Qty: 180 1RF Rx Instructions: Take one at 4 pm and 10 pm as needed zonisamide 50 mg capsule 100 mg PO QHS Qty: 60 5RF amiloride 5 mg tablet 5 mg PO BID Qty: 90 0RF albuterol sulfate 90 mcg/actuation HFA aerosol inhaler 2 puff INHALATION .Q4-6H PRN (Reason: shortness of breath or wheezing) Qty: 18 3RF apixaban 5 mg tablet 5 mg PO BID Qty: 60 6RF spironolactone 100 mg tablet 100 mg PO QDAY Qty: 90 3RF amlodipine 5 mg tablet 5 mg PO QDAY Qty: 90 0RF acetaminophen 500 mg tablet 500 mg PO Q6HP PRN (Reason: Pain) 0RF epinephrine 0.3 mg/0.3 mL auto-injector 0.3 mg IM ONCE 0RF cholecalciferol (vitamin D3) 25 mcg (1,000 unit) tablet 25 mcg (1,000 unit) tablet 5,000 unit PO QDAY 0RF carbidopa-levodopa 25-100 mg tablet 2 tab PO QID 0RF metoprolol succinate 100 mg tablet extended release 24 hr 100 mg PO QPM 0RF metoprolol succinate 200 mg tablet extended release 24 hr 200 mg PO QAM 0RF pregabalin 75 mg capsule 150 mg PO QHS 0RF clobetasol 0.05 % shampoo 1 applic topical QDAY Qty: 118 1RF docusate sodium 100 mg capsule 100 mg PO BID 0RF nystatin 100,000 unit/gram cream 1 applic TOPICAL BID PRN (Reason: Rash) 0RF potassium chloride 20 mEq tablet extended release 20 meq PO BID Qty: 180 4RF torsemide 100 mg Tablet 100 mg PO QAM 0RF torsemide 100 mg Tablet 50 mg PO QHS 0RF Follow Up Plan Follow up with: Delta Cee PA-C [Primary Care Provider] - Patient Disposition: Home, Self-Care Prognosis: Good Rehab Potential: Good I certify that the patient requires SNF services: No Overall status at discharge: patient is back to baseline Discharge Orders: Discharge Order (Routine); Ordered 08/20/21 Ordered By: Nicolas GARG VTE Deep Vein Thrombosis/Pulmonary Embolism Present on Admission: No
[2021-08-20] MEDS: CARBIDOPA/LEVODOPA 25/100 TABLET PO SCH (09:33)
[2021-08-20] MEDS: lamoTRIgine 100 MG TABLET PO SCH (09:34)
[2021-08-20] MEDS: aMILoride 5 MG TABLET PO SCH (09:35)
--- NOTE | 2021-08-22 07:29 | EKG ---
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
--- NOTE | 2021-08-22 07:33 | EKG ---
[facility] Test Date: 2021-08-19 Pat Name: Beny Raphael Department: ED Room: Gender: Male [place] Operator: LR : 1955 Requested By: Nicolas Urrutia Order Number: [id number] Reading MD: Peter Roldan Measurements Intervals [place] Rate: 93 P: [place]: QRS: -4 QRSD: 109 T: 44 QT: 392 QTc: 488 Interpretive Statements Atrial fibrillation Inferior infarct, old Electronically Signed On 08-22-2021 7:33:28 PST by Peter Roldan /[email or web address]/[id number]
--- NOTE | 2021-08-22 07:34 | EKG ---
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
== END 2021-08-20 13:37 | disposition home or self-care (01) ==
LOC: ED 11:13 → ICU 16:35 → INTOOBSV 16:35
PROVIDERS: ADMIT Internal Medicine; ATTEND Internal Medicine

== ENCOUNTER 2023-09-06 05:33 | Inpatient (IN) ==
[2023-09-06] MEDS: OLANZapine 10 MG VIAL IM SCH (05:50)
[2023-09-06] MEDS: LORazepam 2 MG/ML VIAL IM ONE (06:30)
[2023-09-06 07:04] LABS: Hematocrit 42.2 % (40.1-51.0); Hemoglobin 13.7 g/dL (13.7-17.5); Mean Cell Volume 98.6 fL (80.0-100.0); Mean Corpuscular HGB Conc 32.5 g/dL (31.0-36.0); Mean Platelet Volume 10.4 fL (8.8-12.5); Platelet Count 196 K/mcL (140-440); RBC 4.28 M/mcL (4.63-6.08); Red Cell Distribution Width 13.4 % (11.5-14.5); WBC 12.2 K/mcL (4.5-11.0)
[2023-09-06 07:16] LABS: Thyroid Stimulating Hormone 1.66 uIU/mL (0.27-5.01)
[2023-09-06 07:19] LABS: ALT/SGPT < 5 U/L (<40); AST/SGOT 15 U/L (<40); Albumin 3.7 gm/dL (3.2-5.2); Albumin/Globulin Ratio 1.2 (1.0-2.3); Alkaline Phosphatase 65 U/L (39-117); Bilirubin,Total 0.5 mg/dL (0.1-1.0); Blood Urea Nitrogen 15 mg/dL (8-23); Calcium 8.9 mg/dL (8.6-10.4); Carbon Dioxide 31 mmol/L (22-30); Chloride 103 mmol/L (96-108); Glomerular Filtration Rate 69; Glucose 130 mg/dL (70-105)
[2023-09-06 07:49] LABS: Lymphocytes % 18 % (15-49); Monocytes % (Manual) 3 % (1-12); Platelet Estimate NORMAL (Normal); RBC Morphology NORMAL (Normal); Reactive Lymphocytes 1 % (0-2); Segmented Neutrophils % 78 % (38-78)
[2023-09-06 07:50] LABS: Appearance,Urine Clear (Clear); Bilirubin,Urine Negative (Negative); Color,Urine Yellow; Culture Indicated,Urine No; Glucose,Urine (UA) Negative (Negative); Ketones,Urine Trace mg/dL (Negative); Leukocyte Esterase,Urine Negative /uL (Negative); Nitrate,Urine Negative (Negative); Protein,Urine Negative (Negative); Urine Blood Negative ery/mcL (Negative); Urine RBC 0 /hpf (0-3); Urine Squamous Epithelial Cell 0 /hpf (0-4); Urine WBC 0 /hpf (0-4); Urobilinogen,Urine Normal
[2023-09-06] MEDS: AZITHROMYCIN 500 MG in DEXTROSE 5% IN WATER 250 ML IV ONE (09:03)
[2023-09-06] MEDS: cefTRIAXone 1 GM VIAL IV ONE (09:03)
[2023-09-06] MEDS ORDERED: ONDANSETRON 4 MG/2 ML VIAL IV PRN (12:33)
[2023-09-06] MEDS: 0.9 % SODIUM CHLORIDE 10 ML SYRINGE IV SCH (14:44)
[2023-09-06] MEDS: LORazepam 2 MG/ML VIAL IV PRN (15:31)
[2023-09-06] MEDS: SENNOSIDES 1 TABLET PO SCH (20:37)
[2023-09-06] MEDS: DOCUSATE SODIUM 100 MG CAPSULE PO SCH (20:37)
[2023-09-07] MEDS: LORazepam 2 MG/ML VIAL IV ONE (07:22)
[2023-09-07 07:23] LABS: Basophils # (Auto) 0.06 K/mcL (0.00-0.30); Basophils % (Auto) 0.6 % (0.0-2.0); Eosinophils % (Auto) 5.3 % (0.0-7.0); Hematocrit 42.7 % (40.1-51.0); Lymphocytes # (Auto) 1.99 K/mcL (1.50-4.80); Lymphocytes % (Auto) 20.9 % (15.5-49.0); Mean Cell Volume 97.9 fL (80.0-100.0); Mean Corpuscular HGB Conc 32.8 g/dL (31.0-36.0); Mean Platelet Volume 10.9 fL (8.8-12.5); Monocytes % (Auto) 8.4 % (1.0-12.0); Neutrophils % (Auto) 64.6 % (38.0-78.0); Platelet Count 199 K/mcL (140-440); RBC 4.36 M/mcL (4.63-6.08); Red Cell Distribution Width 13.2 % (11.5-14.5); WBC 9.5 K/mcL (4.5-11.0)
[2023-09-07 07:53] LABS: ALT/SGPT 9 U/L (<40); AST/SGOT 19 U/L (<40); Albumin 3.7 gm/dL (3.2-5.2); Albumin/Globulin Ratio 1.2 (1.0-2.3); Alkaline Phosphatase 68 U/L (39-117); Bilirubin,Direct 0.2 mg/dL (<0.3); Bilirubin,Total 0.7 mg/dL (0.1-1.0); Blood Urea Nitrogen 11 mg/dL (8-23); Calcium 9.1 mg/dL (8.6-10.4); Carbon Dioxide 29 mmol/L (22-30); Chloride 104 mmol/L (96-108); Glomerular Filtration Rate 88; Glucose 110 mg/dL (70-105); Lactate Dehydrogenase 210 U/L (135-225); Phosphorous 2.4 mg/dL (2.5-4.5); Triglycerides 133 mg/dL (<150); Uric Acid 4.6 mg/dL (2.5-8.0)
[2023-09-07] MEDS: DULoxetine 30 MG CAPSULE PO SCH (09:06)
[2023-09-07] MEDS: cefTRIAXone 1 GM VIAL IV SCH (09:07)
[2023-09-07] MEDS: LISINOPRIL 20 MG TABLET PO SCH (09:07)
[2023-09-07] MEDS: ALLOPURINOL 300 MG TABLET PO SCH (09:07)
[2023-09-07] MEDS: lamoTRIgine 100 MG TABLET PO SCH (09:07)
[2023-09-07] MEDS: amLODIPine 5 MG TABLET PO SCH (09:07)
[2023-09-07] MEDS: ENOXAPARIN 40 MG/0.4 ML SYRINGE SQ SCH (09:09)
[2023-09-07] MEDS: METOPROLOL SUCCINATE 50 MG TAB.XL.24H PO SCH ×2 (09:09→20:17)
[2023-09-07] MEDS ORDERED: OLANZapine 10 MG VIAL IM PRN (10:24)
[2023-09-07] MEDS: AZITHROMYCIN 500 MG in DEXTROSE 5% IN WATER 250 ML IV SCH (10:26)
[2023-09-07] MEDS: CARBIDOPA/LEVODOPA CR 25/100 TABLET PO SCH (11:16)
[2023-09-07] MEDS: CARBIDOPA/LEVODOPA 25/250 TABLET PO SCH (11:17)
[2023-09-07] MEDS: TAMSULOSIN 0.4 MG CAPSULE PO ONE (11:17)
[2023-09-07] MEDS: OLANZapine 5 MG TABLET PO PRN (13:31)
[2023-09-07] MEDS: PRAMIPEXOLE 1 MG TABLET PO SCH (14:38)
[2023-09-07] MEDS: TAMSULOSIN 0.4 MG CAPSULE PO SCH (20:17)
[2023-09-07] MEDS: traZODone HCL 100 MG TABLET PO SCH (20:17)
[2023-09-07] MEDS: RIVAROXABAN 20 MG TABLET PO SCH (20:17)
[2023-09-07] MEDS: ARIPIPRAZOLE 5 MG TABLET PO SCH (20:17)
[2023-09-07] MEDS: PREGABALIN 75 MG CAPSULE PO SCH (20:17)
[2023-09-07] MEDS: MEMANTINE 10 MG TABLET PO SCH (20:18)
== END 2023-09-08 11:50 | disposition home or self-care (01) | DRG 70 ==
LOC: ED 05:33 → MEDSUR 12:29
PROVIDERS: ADMIT Internal Medicine; ATTEND Internal Medicine